=== PATIENT | female | born 1955 | race Caucasian/White ===

== ENCOUNTER → 2024-09-05 09:54 | Outpatient (REF) | payer MEDICARE, SELFPAY | LOC: RCS 09:54 | PROVIDERS: ATTENDING PHYSICIAN Internal Medicine Interventional Cardiology; FAMILY PHYSICIAN Family Medicine | DX: R00.2 Palpitations (principal); I10 Essential (primary) hypertension; E78.2 Mixed hyperlipidemia | CPT/HCPCS: 93306 ==